=== PATIENT | female | born 2000 | race Caucasian/White ===

== ENCOUNTER → 2022-04-10 11:53 | Outpatient (CLI) | payer OTHER, SELFPAY ==
[2022-04-10 12:40] LABS: Influenza A - CEPHEID Flu A NEGATIVE (NEGATIVE); Influenza B - CEPHEID Flu B NEGATIVE (NEGATIVE); Respiratory Syncytial Virus Negative (Negative)
[2022-04-10 12:44] LABS: COVID-19 CEPHEID 4-PLEX PCR Negative (Negative)
== END ==
PROVIDERS: Visit Provider Physician Assistant
DX: R05.9 Cough, unspecified (principal)
CPT/HCPCS: 0241U

== ENCOUNTER → 2022-04-22 12:45 | Outpatient (CLI) | payer OTHER, SELFPAY ==
--- NOTE | 2022-04-22 | DI.RAD.S_ITS ---
PROCEDURE: XR RIBS LT 2V INDICATIONS: back pain TECHNIQUE: 2 views of the left ribs were acquired. COMPARISON: None. FINDINGS: Surgical changes and devices: None. Bones and chest wall: No fractures or dislocations. No suspicious bony lesions. Overlying soft tissues appear unremarkable. Lungs and pleura: The visualized lung appears clear. No pleural effusions or pneumothorax are visible. IMPRESSION: No displaced rib fractures visualized. Dictated by: Soraida Hopson M.D. on 04/22/2022 at 13:52 Approved by: Soraida Hopson M.D. on 04/22/2022 at 13:53
--- NOTE | 2022-04-22 | DI.RAD.S_ITS ---
PROCEDURE: XR RIBS RT 2V INDICATIONS: back pain TECHNIQUE: 2 views of the right ribs were acquired. COMPARISON: None. FINDINGS: Surgical changes and devices: None. Bones and chest wall: No fractures or dislocations. No suspicious bony lesions. Overlying soft tissues appear unremarkable. Lungs and pleura: The visualized lung appears clear. No pleural effusions or pneumothorax are visible. IMPRESSION: No displaced rib fractures visualized. Dictated by: Soraida Hopson M.D. on 04/22/2022 at 13:51 Approved by: Soraida Hopson M.D. on 04/22/2022 at 13:52
--- NOTE | 2022-04-22 | DI.RAD.S_ITS ---
PROCEDURE: XR CERVICAL SPINE 4V OR 5V INDICATIONS: cervicalgia TECHNIQUE: 3 views of the cervical spine were acquired. COMPARISON: None. FINDINGS: Bones: No fractures or dislocations to the C7-T1 level. No suspicious bony lesions. There is normal range of motion between flexion and extension, with preserved normal bony alignment. Soft tissues: Prevertebral soft tissues are normal in thickness. IMPRESSION: No subluxation with flexion/extension. Dictated by: Soraida Hopson M.D. on 04/22/2022 at 13:50 Approved by: Soraida Hopson M.D. on 04/22/2022 at 13:51
--- NOTE | 2022-04-22 | DI.RAD.S_ITS ---
PROCEDURE: XR THORACIC SPINE 2V INDICATIONS: back pain TECHNIQUE: 3 views of the thoracic spine were acquired. COMPARISON: None. FINDINGS: Bones: No fractures or dislocations. No suspicious bony lesions. 12 pairs of ribs are noted, and appear intact where visualized. Soft tissues: No paravertebral stripe thickening. IMPRESSION: No radiographic abnormalities of the thoracic spine. Dictated by: Soraida Hopson M.D. on 04/22/2022 at 13:53 Approved by: Soraida Hopson M.D. on 04/22/2022 at 13:53
--- NOTE | 2022-04-22 | DI.RAD.S_ITS ---
PROCEDURE: XR LUMBAR SPINE 2-3V INDICATIONS: back pain TECHNIQUE: 3 views of the lumbar spine were acquired. COMPARISON: None. FINDINGS: Bones: 5 [id number] vertebrae are present. There is normal bony alignment. No vertebral body compression fractures. No suspicious bony lesions. Mild intervertebral disc space narrowing is present at L5-S1. Soft tissues: Overlying bowel gas pattern is normal. No suspicious soft tissue calcifications. IMPRESSION: Mild degenerative change at the lumbosacral junction. Dictated by: Soraida Hopson M.D. on 04/22/2022 at 13:51 Approved by: Soraida Hopson M.D. on 04/22/2022 at 13:51
== END ==
PROVIDERS: Referring Provider Chiropractor; Visit Provider Chiropractor
DX: M99.11 Subluxation complex (vertebral) of cervical region (principal); M99.12 Subluxation complex (vertebral) of thoracic region; M99.13 Subluxation complex (vertebral) of lumbar region; M47.817 Spondylosis without myelopathy or radiculopathy, lumbosacral region; M54.2 Cervicalgia; M54.6 Pain in thoracic spine; M54.51 Vertebrogenic low back pain; R07.81 Pleurodynia
CPT/HCPCS: 71100; 72050; 72070; 72100

== ENCOUNTER 2022-07-09 04:27 | Emergency (ER) | payer OTHER, SELFPAY ==
[2022-07-09 04:35] VITALS: BP 130/87; PULSE 71; RESP 20; TEMP 36.7; O2SAT 100; BMI 19.2
--- NOTE | 2022-07-09 04:52 | ED.GENADULT ---
HPI - General Adult General Chief complaint: Abdominal Pain Stated complaint: abd pain Time Seen by Provider: 07/09/22 04:47 Source: patient Mode of arrival: Ambulatory Limitations: no limitations History of Present Illness HPI narrative: Patient is a 21-year-old female who is here for evaluation of several days of generalized abdominal discomfort. Patient denies any fevers. No vomiting but is having some nausea.. Vaginal bleeding. Is having some urinary hesitancy. She did have a hard bowel movement yesterday. No prior abdominal surgeries. Related Data Home Medications Medication Instructions Recorded Confirmed control PO 04/10/22 04/10/22 Allergies Allergy/AdvReac Type Severity Reaction Status Date / Time No Known Drug Allergies Allergy Unverified 04/10/22 11:47 Review of Systems Constitutional Constitutional: Reports system reviewed and no additional complaints, except as documented Cardiovascular Cardiovascular: Reports system reviewed and no additional complaints, except as documented Respiratory Respiratory: Reports system reviewed and no additional complaints, except as documented Gastrointestinal Gastrointestinal: Reports system reviewed and no additional complaints, except as documented Genitourinary Genitourinary: Reports system reviewed and no additional complaints, except as documented Integumentary/Breasts Skin/Breast: Reports system reviewed and no additional complaints, except as documented Neurologic Neurologic: Reports system reviewed and no additional complaints, except as documented Patient History Medical History Viral URI with cough Social History Smoking Status: Never smoker Smoking Status: Never smoker Substance Use Type: does not use Exam Initial Vital Signs Initial Vital Signs: Vital Signs Temperature 98.1 F 07/09/22 04:35 Pulse Rate 71 07/09/22 04:35 Respiratory Rate 20 07/09/22 04:35 Blood Pressure 130/87 07/09/22 04:35 Pulse Oximetry 100 07/09/22 04:35 Oxygen Delivery Method 07/09/22 04:35 Const General: cooperative, comfortable and No ill appearing HENMT Head: normal to inspection and normocephalic Resp Effort & Inspection: normal respiratory effort Auscultation: clear to auscultation bilaterally Cardio Rate: regular rate Rhythm: regular rhythm GI Inspection: normal to inspection Palpation: soft, No firm, No guarding and tender Back/Spine/Pelvis Back: No CVA tenderness Skin General: no rashes or lesions noted Neuro General: patient alert, patient awake and patient oriented x3 Extrem General: normal to inspection and capillary refill normal Course Orders Ordered: ED Orders 07/09/22 05:20 Complete Blood Count AUTO DIFF Stat Comprehensive Metabolic Panel Stat Lipase Stat 07/09/22 05:58 CT abdomen pelvis w con Stat Vital Signs Vital signs: Vital Signs - 8 hr 07/09/22 04:35 Temperature 98.1 F Pulse Rate 71 Respiratory Rate 20 Blood Pressure 130/87 Pulse Oximetry 100 Oxygen Delivery Method Room Air Medical Decision Making Lab Data Lab results reviewed: Yes I reviewed the patient's lab results. 07/09/22 05:20 07/09/22 05:20 Labs: Lab Results 07/09/22 07/09/22 Range/Units 05:20 05:20 WBC 6.5 (4.5-11.0) X10^3/uL RBC 4.92 (4.0-5.2) X10^6/uL Hgb 14.8 (12.0-16.0) g/dL Hct 43.9 (36-46) % MCV 89.1 (80-100) fL MCH 30.1 (26-34) PG MCHC 33.8 (30-36) % RDW 12.6 (11.6-14.8) % Plt Count 215 (150-400) X10^3/uL Neut % (Auto) 68.1 (50-75) % Lymph % (Auto) 22.9 L (25-40) % [place] % (Auto) 7.7 (3-14) % Eos % (Auto) 0.8 L (2-4) % Baso % (Auto) 0.5 (0-2) % Neut # (Auto) 4400 (4352-5815) /uL Lymph # (Auto) 1500 (6968-3700) /uL [place] # (Auto) 500 (0-900) /uL Eos # (Auto) 100 (0-450) /uL Baso # (Auto) 0 (0-100) /uL Sodium 137 (137-145) mmol/L Potassium 3.9 (3.4-5.1) mmol/L Chloride 103 (98-107) mmol/L Carbon Dioxide 23 (22-32) mmol/L BUN 8 (7-17) mg/dL Creatinine 0.57 (0.52-1.04) mg/dL Estimated GFR > 60 (>60) mL/min BUN/Creatinine Ratio 14.0 (6-22) Glucose 108 H (70-100) mg/dL Calcium 8.9 (8.4-10.2) mg/dL Total Bilirubin 0.4 (0.2-1.3) mg/dL AST 24 (14-36) IU/L ALT 18 (<35) IU/L Alkaline Phosphatase 57 (38-126) U/L Total Protein 7.8 (6.3-8.2) g/dL Albumin 4.4 (3.5-5.0) g/dL Globulin 3.4 (1.7-4.1) g/dL Albumin/Globulin Ratio 1.3 (1.0-2.8) Lipase 170 (23-300) U/L Point of Care Testing Test Results Negative Urine Dip Bedside Urine Glucose Negative Bedside Urine Bilirubin - Negative Bedside Urine Ketone - Negative Urine Specific [place] 1.010 Bedside Urine Occult Blood - Negative Bedside Urine pH 7.0 Bedside Urine Protein - Negative Bedside Urine Urobilinogen - Negative Bedside Urine Nitrite - Negative Bedside Urine Leukocytes - Negative Esterase Point of care testing: Point of Care Testing Test Results Negative Urine Dip Bedside Urine Glucose Negative Bedside Urine Bilirubin - Negative Bedside Urine Ketone - Negative Urine Specific [place] 1.010 Bedside Urine Occult Blood - Negative Bedside Urine pH 7.0 Bedside Urine Protein - Negative Bedside Urine Urobilinogen - Negative Bedside Urine Nitrite - Negative Bedside Urine Leukocytes - Negative Esterase Imaging Data CT scan - abdomen/pelvis: Radiologist's Impression: Large stool burden No acute abnormality identified MDM Narrative Medical decision making narrative: Patient does have a relatively benign exam but does have generalized abdominal tenderness. Her labs are unremarkable. Urine shows no signs of infection. test is negative. Had a discussion with her regarding options to include discharge home for further observation to see if her symptoms do not improve verses a CT scan. We discussed the risks and benefits of each his decisions and afterwards after discussion with her as well we decided to obtain a CT scan. This did show a very large stool burden. No other acute abnormalities. I suspect that this is the cause of her discomfort. We discussed her starting on a good bowel regiment and using laxatives. No indication for antibiotics. No indication for surgical consultation. She was given strict return precautions. She expressed understanding and agreement. Discharge Plan Departure Patient Disposition: Home Clinical Impression: Abdominal pain, Constipation Instructions: DI for Constipation Activity Restrictions/Additional Instructions: Continue to take all of your medications as directed. The recommend that you increase your fluid intake. You can also consider taking a laxative such as MiraLax which can be purchased [id number]. Return to the emergency department for any new or worsening symptoms. Prescriptions: No Action control PO Referrals: Miscellaneous,Doctor, MD [Primary Care Provider] - Stand Alone Forms: Patient Portal/API
[2022-07-09 05:25] LABS: Add Manual Diff / Slide Review NO; Basophils Absolute Auto 0 /uL (0-100); Basophils Percent Auto 0.5 % (0-2); Eosinophils Absolute Auto 100 /uL (0-450); Eosinophils Percent Auto 0.8 % (2-4); Hematocrit 43.9 % (36-46); Hemoglobin 14.8 g/dL (12.0-16.0); Lymphocytes Absolute Auto 1500 /uL (1100-4500); Lymphocytes Percent Auto 22.9 % (25-40); Mean Corpuscular HGB Conc 33.8 % (30-36); Mean Corpuscular Hemoglobin 30.1 PG (26-34); Mean Corpuscular Volume 89.1 fL (80-100); Monocytes Absolute Auto 500 /uL (0-900); Monocytes Percent Auto 7.7 % (3-14); Neutrophils Absolute Auto 4400 /uL (1500-7000); Neutrophils Percent Auto 68.1 % (50-75); Platelet Count 215 X10^3/uL (150-400); Red Blood Cell Count 4.92 X10^6/uL (4.0-5.2); Red Cell Distribution Width 12.6 % (11.6-14.8); White Blood Cell Count 6.5 X10^3/uL (4.5-11.0)
[2022-07-09 05:38] LABS: Alanine Aminotransferase 18 IU/L (<35); Albumin 4.4 g/dL (3.5-5.0); Albumin Globulin Ratio 1.3 (1.0-2.8); Alkaline Phosphatase 57 U/L (38-126); Aspartate Aminotransferase 24 IU/L (14-36); Bilirubin Total 0.4 mg/dL (0.2-1.3); Blood Urea Nitrogen 8 mg/dL (7-17); Calcium 8.9 mg/dL (8.4-10.2); Carbon Dioxide 23 mmol/L (22-32); Chloride 103 mmol/L (98-107); Estimated Glomerular Filt Rate > 60 mL/min (>60); Globulin 3.4 g/dL (1.7-4.1); Glucose 108 mg/dL (70-100); HEMOLYSIS 15 (0-50); Lipase 170 U/L (23-300); Potassium 3.9 mmol/L (3.4-5.1); Sodium 137 mmol/L (137-145); Total Protein 7.8 g/dL (6.3-8.2)
--- NOTE | 2022-07-09 05:58 | DI.CT.S_ITS ---
PROCEDURE: CT ABDOMEN PELVIS W CON INDICATIONS: Generalized abdominal tenderness TECHNIQUE: After the administration of IV contrast, axial sections were acquired from the lung bases to the pubic symphysis. Coronal and sagittal reformats were performed. For radiation dose reduction, the following was used: automated exposure control, adjustment of mA and/or kV according to patient size. COMPARISON: None. FINDINGS: Image quality: Excellent. Lung bases: Unremarkable. Heart: No significant findings. ABDOMEN: Liver: Unremarkable. Gallbladder: Unremarkable. Biliary ducts: Unremarkable. Pancreas: Unremarkable. Spleen: Unremarkable. Adrenal Glands: Unremarkable. Kidneys and Ureters: Unremarkable. Stomach and Bowel: Stomach, small bowel loops, and colon are normal in caliber. Appendix is normal. There is a large amount of stool in colon Peritoneum: No abnormal intraperitoneal fluid. No free air. Ventral Wall: No hernia. Abdominal Nodes: No retroperitoneal or mesenteric adenopathy by size criteria. Vessels: Aorta and inferior vena cava are normal in size. PELVIS: Pelvic Organs: Unremarkable. Bladder: Unremarkable. Pelvic Nodes: No enlarged lymph nodes. Miscellaneous: No inguinal hernias are seen. Bones: Unremarkable. IMPRESSION: 1. No acute abnormalities in abdomen or pelvis. 2. Large amount of stool in colon. No significant discrepancy with the night shift manager radiology preliminary report. Dictated by: Michael Coleman M.D. on 07/09/2022 at 8:00 Approved by: Michael Coleman M.D. on 07/09/2022 at 8:03
[2022-07-09 06:46] VITALS: BP 127/87; PULSE 84; RESP 18; O2SAT 100
[2022-07-09 06:53] VITALS: BP 127/87; PULSE 75; RESP 15; O2SAT 97
== END 2022-07-09 06:54 | disposition home or self-care (01) ==
PROVIDERS: Emergency Provider Emergency Medicine
DX: R10.84 Generalized abdominal pain (principal); K59.00 Constipation, unspecified
CPT/HCPCS: 36415; 74177; 80053; 81003; 81025; 83690; 85025; 99283; 99284; Q9967

== ENCOUNTER → 2024-06-03 08:30 | Outpatient (CLI) | payer OTHER, SELFPAY ==
[2024-06-03 09:22] LABS: Influenza A - CEPHEID Flu A POSITIVE (NEGATIVE); Influenza B - CEPHEID Flu B NEGATIVE (NEGATIVE); Respiratory Syncytial Virus Negative (Negative)
[2024-06-03 09:38] LABS: COVID-19 CEPHEID 4-PLEX PCR Negative (Negative)
== END ==
PROVIDERS: PCP Nurse Practitioner Family; Referring Provider Physician Assistant; Visit Provider Physician Assistant
DX: R05.1 Acute cough (principal); J02.9 Acute pharyngitis, unspecified
CPT/HCPCS: 0241U; 87070